=== PATIENT | female | born 1980 | race Caucasian/White ===

== ENCOUNTER 2021-11-12 10:30 | Outpatient (CLI) | payer BC | END 2021-11-12 10:31 | disposition home or self-care (01) | LOC: CSHMRI 10:30 | PROVIDERS: ATTEND Psychiatry & Neurology Neurology | DX: M54.6 Pain in thoracic spine (principal); G89.29 Other chronic pain; M54.2 Cervicalgia; R20.2 Paresthesia of skin | CPT/HCPCS: 72146 ==

== ENCOUNTER 2024-09-21 15:01 | Outpatient (CLI) | payer BC, OTHER | END 2024-09-21 15:02 | disposition home or self-care (01) | LOC: CSHMAMMO 15:01 | PROVIDERS: ATTEND Family Medicine | DX: Z12.31 Encounter for screening mammogram for malignant neoplasm of breast (principal) | CPT/HCPCS: 77063; 77067 ==